=== PATIENT | female | born 1960 | race Caucasian/White ===

== ENCOUNTER 2016-07-20 21:25 | Emergency (ER) | payer BC, MEDICARE ==
--- NOTE | ~2016-07-20 | CT98 ---
[facility] A Service [facility] RADIOLOGY TEXT RESULTS PATIENT: RICHARD LEONARDO LOCATION: SED : 64 UNIT #: [id number] AGE: [address]: Abundio Poe MD SEX: F ORDER DR: [id number] [place] [id number] E MR#: [id number] Acc #: [id number] NAME: RICHARD LEONARDO. : 1960 SEX: F STUDY DATE/TIME: 07/20/2016 21:35 UNIT: SED ROOM: STUDY DESCRIPTION: CT Lumbar Spine Wo Cont Attending Physician: Abundio Poe M.D. Ordering Physician: Abundio Poe M.D. Primary Care Physician: Sid Ness M.D. MEDICAL IMAGING REPORT This report is preliminary unless electronic signature is present. EXAM Lumbar spine CT INDICATIONS Fall. Back pain. Trauma. TECHNIQUE This CT exam was performed with one or more of the following radiation dose reduction techniques: automatic exposure control, adjustment of mA and/or kV according to patient size, and iterative reconstruction. CT of the lumbar spine without contrast. Coronal and sagittal reconstructions were obtained. COMPARISON None available. FINDINGS There is no acute fracture or subluxation of the cervical spine. Vertebral body height and alignment is within normal limits. There is multilevel degenerative changes of the cervical spine. This is consistent with disk space narrowing, facet arthropathy, and small osteophyte formation. This is most significant at L4-5 where there is a moderate central canal stenosis. There is more mild central canal stenosis at L5-S1. There are multiple levels of neural foraminal stenosis due to osteophyte formation. IMPRESSION No acute traumatic findings identified. [facility] A Service of [facility] RADIOLOGY TEXT RESULTS PATIENT: RICHARD LEONARDO LOCATION: SED : 64 UNIT #: [id number] AGE: [address]: Abundio Poe MD SEX: F ORDER DR: Dictated by... Martín P. Joey, M.D. THIS IS AN ELECTRONICALLY VERIFIED REPORT Martín Cook M.D. at 07/21/2016 3:06 PM CHARANJIT/brandie TD: 07/21/2016 01:50 JOB #: [id number] MEDICAL IMAGING REPORT Page 1 of 1
[~2016-07-20 21:25] MED LIST: AMITRYPTYLINE PO; APRESOLINE10 M1; BACTRIM DS TABL1 TA1 PO; CIPRO PO; HYDROCODON-ACE1 EAC5 PO; NEURONTIN300 MG PO; PERCOCET 7.5-31 EACH PO; PRINIVIL40 MG PO; SEIZURE MED; SIMVASTATIN20 MG PO; TEGRETOL XR400 MG PO; TOPAMAX50 MG DOB; VIIBRYD20 MG PO; WELLBUTRIN XL PO; XANAX0.5 M1 DOB
== END 2016-07-20 22:31 | disposition home or self-care (01) ==
LOC: SED 21:25
DX: S39.012A Strain of muscle, fascia and tendon of lower back, initial encounter (principal); S33.5XXA Sprain of ligaments of lumbar spine, initial encounter; Z87.891 Personal history of nicotine dependence; W01.0XXA Fall on same level from slipping, tripping and stumbling without subsequent striking against object, initial encounter; Y92.9 Unspecified place or not applicable
CPT/HCPCS: 72131; 99284